=== PATIENT | male | born 1995 | race Caucasian/White ===

== ENCOUNTER → 2020-06-02 10:12 | Outpatient (CLI) | payer OTHER, SELFPAY ==
[2020-06-03 14:11] LABS: Covid-19 Nasal PCR Sendout Lex NOT DETECTED
== END ==
PROVIDERS: PCP Emergency Medicine; Visit Provider Nurse Practitioner Family
DX: Z03.818 Encounter for observation for suspected exposure to other biological agents ruled out (principal)
CPT/HCPCS: U0004

== ENCOUNTER 2022-02-01 16:04 | Emergency (ER) | payer BC, OTHER, SELFPAY ==
[2022-02-01 16:36] VITALS: BP 97/60; PULSE 88; RESP 16; TEMP 36.7; O2SAT 97; BMI 25.0
--- NOTE | 2022-02-01 17:05 | HMH.EDUTC ---
[facility] Disposition Clinical Impression: Exposure to COVID-19 virus, Viral syndrome Disposition: Home, Self-Care Condition on Discharge: Good Instructions: DI for COVID-19 (Suspected or Confirmed ), Preventing the Spread of Coronavirus Discharge Instructions Additional Instructions: Drink plenty of fluids. Take tylenol for pain or fever. Return if you begin to have difficulty breathing. Follow up with your regular doctor. GO TO THE ER FOR ANY WORSENING SYMPTOMS Quarantine until you know the results of your covid-19 test. If it is positive, the health department should call you and give you further instructions about your length of Quarantine and other things. Notify your school or workplace of your results and follow their instructions regarding return to work/school. Referrals: Charles Gordon MD [Primary Care Provider] - Time of Disposition: 17:10 Medical Decision Making - Medical Records Medical records reviewed: No: I reviewed the patient's medical records. - [place] Inquiry Pt receiving controlled substance: No Vital Signs: 02/01/22 16:36 02/01/22 17:12 Temperature 98.0 F 98.0 F Temperature Source Oral Pulse Rate 88 Pulse Rate [Left] 88 Respiratory Rate 16 16 Blood Pressure 97/60 L Blood Pressure [Right Arm] 97/60 L Blood Pressure Mean [Right Arm] 72 02 Sat by Pulse Oximetry 97 Oxygen Delivery Method Room Air [facility] HPI - General Stated complaint: cOVID tEST Time Seen by Provider: 02/01/22 17:05 Description of Symptoms (Recalled from Triage Doc. by RN): patient comes in for covid exposure. patient had chills and runny nose last night, but patient states now symptoms have gone away HEENT Symptoms (Recalled from RN notes): Yes Resp Symptoms (Recalled from RN notes): Yes Skin Symptoms (Recalled from RN notes): No MS Symptoms (Recalled from RN notes): No Functional Status (Recalled from RN notes): n/a - History of Present Illness Provider Complaint: He states that he was exposed to covid-19 about 4 days ago. He was starting to feel bad, but today he has no symptoms. - Related Data Allergies Allergy/AdvReac Type Severity Reaction Status Date / Time No Known Allergies Allergy Verified 02/01/22 16:40 - Worker's Comp Is this a Worker's Comp case?: No [facility] History - Hepatitis A Screen Attestation statement:: This patient has been screened for Hepatitis A risk factors. I have reviewed the patient's past medical history: Yes ROS Obtained: Yes All systems reviewed & no additional complaints - Constitutional Constitutional: Reports as per HPI - Eyes Eyes: Denies eye discharge - ENT Ears, Nose, Mouth, and Throat: Denies sore throat - Cardiovascular Cardiovascular: Denies chest pain - Respiratory Respiratory: Denies chest congestion, Denies cough, Denies dyspnea Physical Exam - General General appearance: alert, in no apparent distress - Head Head exam: atraumatic, normocephalic, normal inspection - Eye Eye exam: Present: normal appearance, PERRL, EOMI - ENT ENT exam: Present: normal exam, normal oropharynx, mucous membranes moist, TM's normal bilaterally, normal external ear exam - Neck Neck exam: Present: normal inspection, full ROM, trachea midline. Absent: meningismus, lymphadenopathy - Chest Chest inspection: Present: normal inspection, symmetric chest wall rise. Absent: tenderness - Respiratory Respiratory exam: Present: normal lung sounds bilaterally. Absent: respiratory distress - Cardiovascular Cardiovascular exam: Present: regular rate, normal rhythm. Absent: JVD - Abdominal Exam Abdominal exam: Present: soft, normal bowel sounds. Absent: distention, tenderness, guarding - Extremities Exam Extremities exam: Present: normal inspection, full ROM, normal capillary refill. Absent: calf tenderness - Back Exam Back exam: Present: normal inspection. Absent: tenderness - Neurological Exam Neurological exam: Prese
[2022-02-01 17:12] VITALS: BP 97/60; PULSE 88; RESP 16; TEMP 36.7; O2SAT 97
== END 2022-02-01 17:12 | disposition home or self-care (01) ==
PROVIDERS: Emergency Provider Nurse Practitioner Family; PCP Emergency Medicine
DX: Z20.822 Contact with and (suspected) exposure to COVID-19 (principal); B34.9 Viral infection, unspecified
CPT/HCPCS: 99212; C9803; G0463; U0003; U0005

== ENCOUNTER 2022-02-06 11:09 | Emergency (ER) | payer BC, OTHER, SELFPAY ==
[2022-02-06 11:21] VITALS: BP 118/85; PULSE 87; RESP 17; TEMP 36.8; O2SAT 97; BMI 25.0
--- NOTE | 2022-02-06 11:35 | HMH.EDUTC ---
[facility] [place] Disposition Clinical Impression: Viral syndrome, Exposure to COVID-19 virus Disposition: Home, Self-Care Condition on Discharge: Good Instructions: DI for Viral Syndrome, DI for COVID-19 (Suspected or Confirmed ), Preventing the Spread of Coronavirus Discharge Instructions Additional Instructions: Drink plenty of fluids. Take tylenol or ibuprofen for pain or fever. Take the medications as directed. Follow up with your regular doctor. GO TO THE ER FOR ANY WORSENING SYMPTOMS Quarantine until you know the results of your covid-19 test. Notify your school or workplace of your results and follow their instructions regarding return to work/school. Prescriptions: Brompheniramine/Pseudoephed/Dm [Bromfed Dm Cough Syrup] 5 ml PO Q6HP PRN #240 ml PRN Reason: Cough Transmission Status: Received by [id number] Ondansetron [Zofran 4mg ODT] 4 mg PO Q8HP PRN #12 tab PRN Reason: Nausea Transmission Status: Received by [facility] Referrals: Charles Gordon MD [Primary Care Provider] - Time of Disposition: 12:06 Medical Decision Making - Medical Records Medical records reviewed: No: I reviewed the patient's medical records. - [facility] Inquiry Pt receiving controlled substance: No Vital Signs: 02/06/22 11:21 02/06/22 12:06 Temperature 98.2 F 98.2 F Temperature Source Oral Oral Pulse Rate 84 Pulse Rate [Left Radial] 87 Respiratory Rate 17 17 Blood Pressure 112/70 Blood Pressure [Right Arm] 118/85 Blood Pressure Mean [Right Arm] 96 02 Sat by Pulse Oximetry 97 Oxygen Delivery Method Room Air Room Air [facility] [place] HPI - General Stated complaint: covid test Time Seen by Provider: 02/06/22 11:35 Mode of Arrival: Ambulatory Source of Information: Patient Limitations: No Limitations Description of Symptoms (Recalled from Triage Doc. by RN): pt to [facility] states he had a positive home covid test and is requesting a test today. HEENT Symptoms (Recalled from RN notes): No Resp Symptoms (Recalled from RN notes): No Skin Symptoms (Recalled from RN notes): No MS Symptoms (Recalled from RN notes): No Functional Status (Recalled from RN notes): na - History of Present Illness Provider Complaint: He states that for the past 2 days he has had body aches, chills, low grade fever and a dry cough. He has been exposed to covid-19 at his home and work. - Related Data Previous Rx's Medication Instructions Recorded Brompheniramine/Pseudoephed/Dm 5 ml PO Q6HP PRN #240 ml 02/06/22 [Bromfed Dm Cough Syrup] Ondansetron [Zofran 4mg ODT] 4 mg PO Q8HP PRN #12 tab 02/06/22 Allergies Allergy/AdvReac Type Severity Reaction Status Date / Time No Known Allergies Allergy Verified 02/01/22 16:40 - Worker's Comp Is this a Worker's Comp case?: No [facility] History - Hepatitis A Screen Attestation statement:: This patient has been screened for Hepatitis A risk factors. I have reviewed the patient's past medical history: Yes ROS Obtained: Yes All systems reviewed & no additional complaints - Constitutional Constitutional: Reports chills, Reports fever(s) - Eyes Eyes: Denies eye discharge - ENT Ears, Nose, Mouth, and Throat: Reports as per HPI - Cardiovascular Cardiovascular: Denies chest pain - Respiratory Respiratory: Denies chest congestion, Reports cough Physical Exam - General General appearance: alert, in no apparent distress - Head Head exam: atraumatic, normocephalic, normal inspection - Eye Eye exam: Present: normal appearance, PERRL, EOMI - ENT ENT exam: Present: normal exam, normal oropharynx, mucous membranes moist, TM's normal bilaterally, normal external ear exam - Neck Neck exam: Present: normal inspection, full ROM, trachea midline. Absent: meningismus, lymphadenopathy - Chest Chest inspection: Present: normal inspection, symmetric chest wall rise. Absent: tenderness - Respiratory Respiratory exam: Present: normal lung sounds
[2022-02-06 12:06] VITALS: BP 112/70; PULSE 84; RESP 17; TEMP 36.8; O2SAT 97
== END 2022-02-06 12:06 | disposition home or self-care (01) ==
PROVIDERS: Emergency Provider Nurse Practitioner Family; PCP Emergency Medicine
DX: U07.1 COVID-19 (principal)
CPT/HCPCS: 99212; C9803; G0463; U0003; U0005

== ENCOUNTER 2023-08-28 09:16 | Emergency (ER) | payer BC, OTHER, SELFPAY ==
[2023-08-28 09:16] VITALS: BP 137/87; PULSE 71; RESP 18; TEMP 36.6; O2SAT 99; BMI 25.8
--- NOTE | 2023-08-28 09:16 | ECG_ITS ---
APPROVED REPORT Exam: Resting ECG HR:67 bpm ECG Measurements Heart Rate 67 AXES MD 172 P 73 QRSd 96 QRS 83 QT 341 T 61 QTc 356 Conclusion SINUS RHYTHM EARLY REPOLARIZATION [ST ELEVATION WITH NORMALLY INFLECTED T-WAVE] ECG normal for age and sex UNCONFIRMED REPORT Electronically signed by : Oni Canela MD 08/30/2023 06:38:19
--- NOTE | 2023-08-28 09:31 | XR_ITS ---
FINAL REPORT TECHNIQUE: Single view chest CLINICAL HISTORY: soa FINDINGS: A single view of the chest was obtained. The heart and mediastinum are within normal limits. The lungs are clear. There is no pneumothorax. Osseous structures are unremarkable. IMPRESSION: No acute cardiopulmonary process. Reviewed, Interpreted and Dictated by Alec Lepe III, MD Transcribed by Zuleika Gray Authenticated and [facility]
--- NOTE | 2023-08-28 09:52 | ED_ITS ---
Discharge Plan Disposition Patient Disposition: Home, Self-Care Chief Complaint: Chest Pain Prescriptions Prescriptions: No Action [id number] 118 ML syrup 5 ml PO Q6HP PRN (Reason: Cough) Qty: 240 0RF ondansetron 4 MG tablet,disintegrating 4 mg PO Q8HP PRN (Reason: Nausea) Qty: 12 0RF Referrals Follow up/Referrals: Asad Batista DO [Primary Care Provider] - See instructions Activity Restrictions/Add. Instructions Additional Instructions/Restrictions: Call your family doctor to establish care for this visit to the emergency dep artment and schedule follow-up within 48 hours to ensure improvement. If you have any worsening of your condition or any other concerning signs or symptoms, return to the emergency department or your primary care doctor for further evaluation. Clinical Impressions Clinical Impression: Vasovagal near syncope Discharge ED Provider: Ronnell Jay General Chief Complaint: Chest Pain Stated Complaint: Chest Pain Time Seen by Provider: 08/28/23 09:17 Mode of Arrival: Ambulatory Source of Information: Patient Limitations: No Limitations Description of Symptoms (Recalled from ER Triage Doc. by RN): Patient states he started having substernal chest pain yesterday after work and just felt cold and clammy states he feels like he was having an anxiety attack. Patient reports symptoms similar to this before but were not accompanied by chest pain. Reports he woke up today and feels somewhat better but wanted to be checked out due to chest pain yesterday. History of Present Illness HPI narrative: Otherwise healthy 28-year-old male presenting with multiple complaints. Patient states that yesterday, 08/27, he was walking to his grandmother's house in the late afternoon when he felt a pressure sensation in his epigastrium, clammy, nauseated, felt as if he was going to pass out, then lay down on the ground. He states that his heart was beating very slowly after that. No syncope, not currently having symptoms. He thinks it was related to anxiety and panic, but given family history of cardiac disease, wanted to be sure. Related Data Previous Rx's Medication Instructions Recorded [id number]-[id number]-[id number] 5 ml PO Q6HP PRN Cough #240 mL 02/06/22 2 mg-30 mg-10 mg/5 mL oral syrup ondansetron 4 mg disintegrating 4 mg PO Q8HP PRN Nausea #12 tabs 02/06/22 tablet Allergies Allergy/AdvReac Type Severity Reaction Status Date / Time No Known Allergies Allergy Verified 02/01/22 16:40 [facility] Disclaimer: The information contained in this section may have been updated after the patient was seen, as this information can be updated by other users. Social History Smoking Status: Never smoker alcohol intake: never current occupational status: employed Travel in the last 8 weeks: None ROS Obtained: Yes All systems reviewed & no additional complaints except as documented Physical Exam General General appearance: alert Neck Neck exam: Present trachea midline Chest Chest inspection: Present normal inspection and symmetric chest wall rise Respiratory Respiratory exam: Present normal lung sounds bilaterally; Absent respiratory distress, wheezes, stridor, accessory muscle use or prolonged expiratory phase Cardiovascular Cardiovascular exam: Present regular rate and normal rhythm Extremities Exam Extremities exam: Absent edema Neurological Exam Neurological exam: Present alert, oriented X3 and CN II-XII intact Skin Skin exam: Present warm and dry; Absent cyanosis, diaphoresis or pallor HEART Score HEART Score HEART Score assessment performed?: Yes HEART Score: 0 Procedures Limited Ultrasound Indication:: Limited cardiac ultrasound Indication: Epigastric pain Identified cardiac views: -Cardiac parasternal long axis -Cardiac parasternal short axis -Cardiac apical four-chamber Findings: -Cardiac activity present -Gross wall motion normal -Pericardial effusion absent -Right heart strain absent -Grossly normal EPSS Impression: -Normal card sounds Images were saved to permanent archive The study was technically adequate CPT: 51779 This study was performed by me, and I personally interpreted all images/videos. Based on my clinical judgement, these images were adequate and did not necessitate further imaging. Critical Care Critical Care Time Critical Care Time: No Medical Decision Making Medical Records Medical records reviewed: Yes I reviewed the patient's medical records. [facility] Inquiry Pt receiving controlled substance: No Emerson was queried for this patient: No Vital Signs Vital Signs: 08/28/23 09:16 08/28/23 10:00 Temperature 97.8 F Temperature Source Oral Pulse Rate 71 Pulse Rate [Right] 71 Respiratory Rate 18 17 Blood Pressure 124/61 Blood Pressure [Right Arm] 137/87 Blood Pressure Mean 90 Blood Pressure Mean [Right Arm] 103 Blood Pressure Source [Right Arm] Automatic Cuff 02 Sat by Pulse Oximetry 99 97 Oxygen Delivery Method Room Air Lab Data Labs: Lab Results 08/28/23 09:19: WBC 5.6, RBC 4.78, Hgb 15.2, Hct 43.3, MCV 90.6, MCH 31.9 H, MCHC 35.2, RDW 12.2, Plt Count 162, MPV 8.0, Neut % (Auto) 53.2, Lymph % (Auto) 39.0, [place] % (Auto) 6.2, Eos % (Auto) 1.4, Baso % (Auto) 0.2, Neut # (Auto) 3.0, Lymph # (Auto) 2.2, [place] # (Auto) 0.4, Eos # (Auto) 0.1, Baso # (Auto) 0.0, Sodium 139, Potassium 3.7, Chloride 104, Carbon Dioxide 30, Anion Gap 8.7, BUN 18, Creatinine 1.00, Estimated Creat Clear 117, Estimated GFR 90, Est GFR ( Amer) 108, Glucose 79, Calcium 9.4, Total Bilirubin 3.7 H, AST 28, ALT 21, Alkaline Phosphatase 55, Troponin I < 0.01, Total Protein 7.6, Albumin 4.8, Globulin 2.8, Albumin/Globulin Ratio 1.7 08/28/23 09:19 08/28/23 09:19 Response Orders (Tests/Meds): ORDERS Category Date Time Status CXR --portable [XR chest portable] Stat Exams 08/28/23 09:31 Taken POCUS Point of Care (ER Only) Stat Exams 08/28/23 09:32 Completed CBC w/Auto Diff [Complete Blood Count Auto Diff] Stat Lab 08/28/23 09:19 Completed CMP [Comprehensive Metabolic Panel] Stat Lab 08/28/23 09:19 Completed Trop I [Troponin I] Stat Lab 08/28/23 09:19 Completed Troponin I Q3H Lab 08/28/23 12:45 Ordered Troponin I Q3H Lab 08/28/23 15:45 Ordered ECG initial Besson Routine Y 08/28/23 09:16 Completed MDM Narrative Medical Decision Narrative: Otherwise healthy 28-year-old male presenting with multiple complaints. Patient states that yesterday, 08/27, he was walking to his grandmother's house in the late afternoon. When he arrived, he stated he felt like he needed to have a bowel movement, he felt a pressure sensation in his epigastrium, clammy, nauseated, felt as if he was going to pass out, then lay down on the ground. He states that his heart was beating very slowly after that. No syncope, not currently having symptoms. He thinks it was related to anxiety and panic, but given family history of cardiac disease, wanted to be sure. History was obtained via conversation with patient and family. On arrival, patient hemodynamically stable, alert, oriented x4, appropriate, GCS 15, moving all extremities spontaneously, pupils equal and reactive to light. Full physical exam performed and significant for well-appearing male no acute distress. Cardiopulmonary exam within normal limits. Abdomen soft, nontender, nondistended. Lungs are clear to auscultation bilaterally. Differential includes vasovagal response, anxiety, panic, ACS, MT, pericarditis, among others. Workup independently interpreted and significant for nonactionable CBC or chem istry. Troponin negative. Chest x-ray without acute cardiopulmonary airspace disease. See radiology read for full review of final results. Independent interpretation of EKG shows sinus rhythm 67 beats a minute with no ST or T wave changes concerning for acute ischemia. Benign early repolarization pattern. VT, QRS, QT intervals within normal limits. Bedside cardiac ultrasound within normal limits On reevaluation, patient resting comfortably in bed. Given patient presentation, workup, history, this most likely represents vasovagal presyncope in the setting of abdominal cramping. Because patient at baseline without signs or symptoms of clinical decompensation, deemed appropriate for discharge. Results were relayed to patient who voiced understanding and were agreeable to outpatient management and follow up. At the time of discharge the patient was hemodynamically stable, tolerating PO, and mobilizing appropriately.
[2023-08-28 09:54] LABS: Basophils % 0.2 % (0.1-2.0); Eosinophils # 0.1 K/mm3 (0.0-0.4); Eosinophils % 1.4 % (0.1-12.0); Hematocrit 43.3 % (42.0-52.0); Hemoglobin 15.2 g/dL (14.1-18.0); Lymphocytes # 2.2 K/mm3 (0.7-4.5); Mean Corpuscular HGB Conc 35.2 g/dL (31.8-35.4); Mean Corpuscular Hemoglobin 31.9 pg (27.0-31.2); Mean Corpuscular Volume 90.6 fl (80-94); Monocytes # 0.4 K/mm3 (0.1-1.0); Monocytes % 6.2 % (1.7-9.3); Neutrophils % 53.2 % (37.0-80.0); Platelet Count 162 K/mm3 (142-424); Red Blood Count 4.78 M/mm3 (4.60-6.20); Red Cell Distribution Width 12.2 % (11.5-17.5); White Blood Count 5.6 K/mm3 (4.8-10.8)
[2023-08-28 09:55] LABS: Chloride 104 mmol/L (98-107); Potassium 3.7 mmoL/L (3.5-5.1); Sodium 139 mmol/L (136-145)
[2023-08-28 09:58] LABS: Alanine Aminotransferase 21 U/L (12-78); Albumin Level 4.8 g/dl (3.5-5.0); Albumin/Globulin Ratio 1.7 (1.1-1.8); Alkaline Phosphatase 55 U/L (38-126); Anion Gap 8.7 mEq/L (5-15); Aspartate Amino Transferase 28 U/L (17-59); Bilirubin,Total 3.7 mg/dl (0.2-1.3); Blood Urea Nitrogen 18 mg/dl (9-20); Carbon Dioxide 30 mmol/L (22.0-30.0); Creatinine Clearance Estimated 117 mL/min (50-200); Estimated Glomerular Filt Rate 90 ml/min (>60); GFR (African American) 108 ML/MIN (>60); Globulin 2.8 g/dL (1.3-3.2); Total Protein,Serum 7.6 g/dl (6.3-8.2)
[2023-08-28 09:59] LABS: Calcium 9.4 mg/dl (8.4-10.2); Glucose 79 mg/dl (74-100)
[2023-08-28 10:00] VITALS: BP 124/61; PULSE 71; RESP 17; O2SAT 97
[2023-08-28 10:26] LABS: Troponin I < 0.01 ng/ml (0.00-0.034)
[2023-08-28 10:30] VITALS: BP 123/78; PULSE 85; RESP 20; O2SAT 96
[2023-08-28 10:34] VITALS: BP 123/78; PULSE 72; RESP 18; TEMP 36.6; O2SAT 99
== END 2023-08-28 10:55 | disposition home or self-care (01) ==
PROVIDERS: Emergency Provider Emergency Medicine; PCP Internal Medicine
DX: R55 Syncope and collapse (principal); R07.9 Chest pain, unspecified; R11.0 Nausea
CPT/HCPCS: 71045; 80053; 84484; 85025; 93005; 99285

== ENCOUNTER 2024-04-14 20:38 | Emergency (ER) | payer BC, OTHER, SELFPAY ==
[2024-04-14 20:39] VITALS: BP 122/77; PULSE 83; RESP 18; TEMP 36.6; O2SAT 98; BMI 26.6
--- NOTE | 2024-04-14 20:48 | ED_ITS ---
Discharge Plan Disposition Patient Disposition: Home, Self-Care Condition: Good Prescriptions Prescriptions: No Action No Known Home Medications Referrals Follow up/Referrals: Allan Malin II, MD [Staff Physician] - See instructions Asad Batista DO [Primary Care Provider] - See instructions Activity Restrictions/Add. Instructions Additional Instructions/Restrictions: I have referred you to gastroenterology. Talk to them about hepatomegaly (large liver) and lab workup today. You likely need no other follow-up other than routine with your PCP as scheduled. Turn to ER for any worsening signs or symptoms as needed Clinical Impressions Clinical Impression: Unconjugated hyperbilirubinemia Instructions Patient Instructions: Gilbert Syndrome Print Language Print Language: [place] Discharge ED Provider: Ronnell Jay General Adult HPI <ASIA Dillon - Last Filed: 04/14/24 22:59> General Chief complaint: PAIN Stated complaint: left rib pain,yellow eyes Time Seen by Provider: 04/14/24 20:48 History of Present Illness HPI narrative: Patient presents for evaluation of left upper abdominal pain and yellowing of his eyes. Patient states that he has been having some left upper quadrant abdominal pain intermittently over the last couple of days. He has no associated shortness of breath chest pain dyspnea nausea vomiting or or diarrhea. Patient does also report a history of yellowing of the eyes that he states goes back to even when he was in high school intermittently. He has never had a workup for this. He denies IV drug use heavy alcohol or daily alcohol use. Related Data Home Medications ?Medication ?Instructions ?Recorded ?Confirmed No Known Home Medications 10/13/23 10/13/23 Allergies Allergy/AdvReac Type Severity Reaction Status Date / Time No Known Allergies Allergy Verified 10/13/23 08:04 PFSH <ASIA Dillon - Last Filed: 04/14/24 22:59> [facility] Disclaimer: The information contained in this section may have been updated after the patient was seen, as this information can be updated by other users. Surgical History History of elbow surgery Family History Other Cancer Coronary artery disease Social History (Reviewed 10/13/23 @ 08:04 by WINNIE Esparza Smoking Status: Never smoker alcohol intake: never current occupational status: employed Travel in the last 8 weeks: None <ASIA Dillon - Last Filed: 04/14/24 22:59> ROS Obtained: Yes Systems reviewed as appropriate & no additional complaints except as documented Physical Exam <ASIA Dillon - Last Filed: 04/14/24 22:59> General General appearance: alert and in no apparent distress Respiratory Respiratory exam: Present normal lung sounds bilaterally Cardiovascular Cardiovascular exam: Present regular rate Neurological Exam Neurological exam: Present alert and oriented X3 Medical Decision Making <ASIA Dillon - Last Filed: 04/14/24 22:59> Medical Records Medical records reviewed: Yes I reviewed the patient's medical records. Screening: Per USPSTF and CDC recommendations, given the prevalence of disease in our region, it is our hospital?s policy to screen for HIV and viral Hepatitis for all patients aged 18 and over and those with ongoing risk factors. [place] Inquiry Pt receiving controlled substance: No Vital Signs: 04/14/24 20:39 04/14/24 22:48 Temperature 98 F 97.9 F Temperature Source Oral Oral Pulse Rate 90 Pulse Rate [Left] 83 Respiratory Rate 18 18 Blood Pressure 134/77 Blood Pressure [Right Arm] 122/77 Blood Pressure Mean [Right Arm] 92 Blood Pressure Source Automatic Cuff Blood Pressure Source [Right Arm] Automatic Cuff Blood Pressure Position Supine Blood Pressure Position [Right Arm] Supine 02 Sat by Pulse Oximetry 98 Oxygen Delivery Method Room Air Room Air Lab Data Lab results reviewed: Yes I reviewed the patient's lab results. Lab Results 04/14/24 20:47: WBC 5.3, RBC 4.51 L, Hgb 14.8, Hct 43.3, MCV 95.9 H, MCH 32.8 H, MCHC 34.2, RDW 12.9, Plt Count 172, MPV 9.3, Neut % (Auto) 71.5, Lymph % (Auto) 22.1, Parmer % (Auto) 5.3, Eos % (Auto) 0.6, Baso % (Auto) 0.5, Neut # (Auto) 3.8, Lymph # (Auto) 1.2, Parmer # (Auto) 0.3, Eos # (Auto) 0.0, Baso # (Auto) 0.0, Sodium 138, Potassium 3.8, Chloride 105, Carbon Dioxide 26, Anion Gap 10.8, BUN 16, Creatinine 0.90, Estimated Creat Clear 134, Estimated GFR 101, Est GFR ( Amer) 122, Glucose 96, Calcium 9.9, Total Bilirubin 4.1 H, Direct Bilirubin 0.2, Indirect Bilirubin 0.0, AST 31, ALT 18, Alkaline Phosphatase 58, Lactate Dehydrogenase 141 L, Total Protein 8.1, Albumin 5.3 H, Globulin 2.8, A lbumin/Globulin Ratio 1.9 H, Lipase 100, Acetaminophen < 10 L, HIV 1&2 Antibody Rapid Nonreactive 04/14/24 21:35: Urine Color Yellow, Urine Appearance Clear, Urine pH 6.0, Ur Specific [place] 1.010, Urine Protein Negative, Urine Glucose (UA) Negative, Urine Ketones Negative, Urine Blood Negative, Urine Nitrate Negative, Urine Bilirubin Negative, Urine Urobilinogen 0.2, Ur Leukocyte Esterase Negative, Urine RBC Occasional, Urine WBC Occasional, Ur Squamous Epith Cells Occasional 04/14/24 20:47 04/14/24 20:47 Orders (Tests/Meds): ED MEDICATIONS Discontinued Medications Generic Name Dose Route Start Last Admin Trade Name Freq PRN Reason Stop Dose Admin Iopamidol 75 ml 04/14/24 21:37 04/14/24 21:38 Iopamidol-370 (76%);100ml Bottle IV 04/14/24 21:38 75 ml ONCE ONE Administration Sodium Chloride 10 ml 04/14/24 21:37 04/14/24 21:38 Sodium Chloride 0.9% 10ml Syr (Rad Only) IV 05/14/24 21:36 10 ml NEEDED PRN Administration Maintain IV Site ORDERS Category Date Time Status CT abdomen pelvis w con Stat Cat Scan 04/14/24 20:55 Completed Acetaminophen Stat Lab 04/14/24 20:47 Completed Bilirubin,Direct Stat Lab 04/14/24 20:47 Completed Bilirubin,Indirect Stat Lab 04/14/24 20:47 Completed CBC w/Auto Diff [Complete Blood Count Auto Diff] Stat Lab 04/14/24 20:47 Completed CMP [Comprehensive Metabolic Panel] Stat Lab 04/14/24 20:47 Completed HIV (1&2) Antibody Rapid Stat Lab 04/14/24 20:47 Completed Hep C Ab with Reflex to RNA Stat Lab 04/14/24 20:47 Stop Req Hepatitis Panel Routine Lab 04/14/24 21:12 Received LDH [Lactate Dehydrogenase] Stat Lab 04/14/24 20:47 Completed Lipase Stat Lab 04/14/24 20:47 Completed UA [Urinalysis and Microscopic] Stat Lab 04/14/24 21:35 Completed Medical Decision Narrative: In summary patient is a 28-year-old male who presents to the emergency department for evaluation of painless jaundice and left upper quadrant abdominal pain. Patient is hemodynamically stable upon arrival, afebrile. Physical exam is remarkable for icterus, no pruritus, slight tenderness to palpation in the left upper quadrant without rebound or guarding or rigidity. Bowel sounds are normal.. Differential diagnosis includes obstructive versus infective versus genetic jaundice, gastritis or pancreatitis etc. Initial workup will be conducted with hematologic labs CT scan abdomen pelvis.. Initial interventions were considered however patient has no significant pain or red flags to intervene with currently and so we will defer for now. Initial workup reviewed by me shows that his bilirubin today is 4.1 which is slightly up from August at which time it was 3.7, he has no elevation in transaminases, his LDH is 141 and the remainder of his hematologic labs are nonactionable. My informal interpretation of his CT scan abdomen pelvis shows no acute processes prior to radiology read. Given this patient is appropriate for discharge with follow-up with his PCP for the remainder of his send out lab results and referral to gastroenterology for following his Gilbert syndrome <Ronnell Jay MD - Last Filed: 04/15/24 16:09> Vital Signs: 04/14/24 20:39 04/14/24 22:48 Temperature 98 F 97.9 F Temperature Source Oral Oral Pulse Rate 90 Pulse Rate [Left] 83 Respiratory Rate 18 18 Blood Pressure 134/77 Blood Pressure [Right Arm] 122/77 Blood Pressure Mean [Right Arm] 92 Blood Pressure Source Automatic Cuff Blood Pressure Source [Right Arm] Automatic Cuff Blood Pressure Position Supine Blood Pressure Position [Right Arm] Supine 02 Sat by Pulse Oximetry 98 Oxygen Delivery Method Room Air Room Air Lab Data Lab Results 04/14/24 20:47: WBC 5.3, RBC 4.51 L, Hgb 14.8, Hct 43.3, MCV 95.9 H, MCH 32.8 H, MCHC 34.2, RDW 12.9, Plt Count 172, MPV 9.3, Neut % (Auto) 71.5, Lymph % (Auto) 22.1, Parmer % (Auto) 5.3, Eos % (Auto) 0.6, Baso % (Auto) 0.5, Neut # (Auto) 3.8, Lymph # (Auto) 1.2, Parmer # (Auto) 0.3, Eos # (Auto) 0.0, Baso # (Auto) 0.0, Sodium 138, Potassium 3.8, Chloride 105, Carbon Dioxide 26, Anion Gap 10.8, BUN 16, Creatinine 0.90, Estimated Creat Clear 134, Estimated GFR 101, Est GFR ( Amer) 122, Glucose 96, Calcium 9.9, Total Bilirubin 4.1 H, Direct Bilirubin 0.2, Indirect Bilirubin 0.0, AST 31, ALT 18, Alkaline Phosphatase 58, Lactate Dehydrogenase 141 L, Total Protein 8.1, Albumin 5.3 H, Globulin 2.8, A lbumin/Globulin Ratio 1.9 H, Lipase 100, Acetaminophen < 10 L, HIV 1&2 Antibody Rapid Nonreactive 04/14/24 21:35: Urine Color Yellow, Urine Appearance Clear, Urine pH 6.0, Ur Specific [place] 1.010, Urine Protein Negative, Urine Glucose (UA) Negative, Urine Ketones Negative, Urine Blood Negative, Urine Nitrate Negative, Urine Bilirubin Negative, Urine Urobilinogen 0.2, Ur Leukocyte Esterase Negative, Urine RBC Occasional, Urine WBC Occasional, Ur Squamous Epith Cells Occasional Orders (Tests/Meds): ED MEDICATIONS Discontinued Medications Generic Name Dose Route Start Last Admin Trade Name Freq PRN Reason Stop Dose Admin Iopamidol 75 ml 04/14/24 21:37 04/14/24 21:38 Iopamidol-370 (76%);100ml Bottle IV 04/14/24 21:38 75 ml ONCE ONE Administration Sodium Chloride 10 ml 04/14/24 21:37 04/14/24 21:38 Sodium Chloride 0.9% 10ml Syr (Rad Only) IV 05/14/24 21:36 10 ml NEEDED PRN Administration Maintain IV Site ORDERS Category Date Time Status CT abdomen pelvis w con Stat Cat Scan 04/14/24 20:55 Completed Acetaminophen Stat Lab 04/14/24 20:47 Completed Bilirubin,Direct Stat Lab 04/14/24 20:47 Completed Bilirubin,Indirect Stat Lab 04/14/24 20:47 Completed CBC w/Auto Diff [Complete Blood Count Auto Diff] Stat Lab 04/14/24 20:47 Completed CMP [Comprehensive Metabolic Panel] Stat Lab 04/14/24 20:47 Completed HIV (1&2) Antibody Rapid Stat Lab 04/14/24 20:47 Completed Hep C Ab with Reflex to RNA Stat Lab 04/14/24 20:47 Stop Req Hepatitis Panel Routine Lab 04/14/24 21:12 Received LDH [Lactate Dehydrogenase] Stat Lab 04/14/24 20:47 Completed Lipase Stat Lab 04/14/24 20:47 Completed UA [Urinalysis and Microscopic] Stat Lab 04/14/24 21:35 Completed Medical Decision Narrative: In summary patient is a 28-year-old male who presents to the emergency department for evaluation of painless jaundice and left upper quadrant abdominal pain. Patient is hemodynamically stable upon arrival, afebrile. Physical exam is remarkable for icterus, no pruritus, slight tenderness to palpation in the left upper quadrant without rebound or guarding or rigidity. Bowel sounds are normal.. Differential diagnosis includes obstructive versus infective versus genetic jaundice, gastritis or pancreatitis etc. Initial workup will be conducted with hematologic labs CT scan abdomen pelvis.. Initial interventions were considered however patient has no significant pain or red flags to intervene with currently and so we will defer for now. Initial workup reviewed by me shows that his bilirubin today is 4.1 which is slightly up from August at which time it was 3.7, he has no elevation in transaminases, his LDH is 141 and the remainder of his hematologic labs are nonactionable. My informal interpretation of his CT scan abdomen pelvis shows no acute processes prior to radiology read. Given this patient is appropriate for discharge with follow-up with his PCP for the remainder of his send out lab results and referral to gastroenterology for following his Gilbert syndrome I was consulted by the SAVANNAH, and we discussed the complexity of the problems being addressed. I approved the treatment and management plan for this patient's care in the Emergency Department, thus performing a substantive portion of the medical decision making. oRnnell Jay MD Critical Care <ASIA Dillon - Last Filed: 04/14/24 22:59> Critical Care Time Critical Care Time: No
--- NOTE | 2024-04-14 20:55 | CT_ITS ---
PROCEDURE INFORMATION: Exam: CT Abdomen And Pelvis With Contrast Exam date and time: 04/14/2024 9:35 PM Age: 28 years old Clinical indication: Other: Jaundice; Additional info: Painless jaundice TECHNIQUE: Imaging protocol: Computed tomography of the abdomen and pelvis with contrast. Radiation optimization: All CT scans at this facility use at least one of these dose optimization techniques: automated exposure control; mA and/or kV adjustment per patient size (includes targeted exams where dose is matched to clinical indication); or iterative reconstruction. Contrast material: ISOVUE; Contrast volume: 75 ml; Contrast route: IV; COMPARISON: CR XR CHEST PORTABLE 08/28/2023 9:39 AM FINDINGS: Lungs: 4 mm left lower lobe calcified granuloma. Liver: Mild hepatomegaly. No mass. Suggestion of minimal periportal edema. Gallbladder and biliary ducts: Normal. No calcified stones. No ductal dilation or wall thickening. Pancreas: Normal. No ductal dilation. Spleen: Borderline splenomegaly. Adrenal glands: Normal. No mass. Kidneys and ureters: Normal. No hydronephrosis. Stomach and bowel: Unremarkable. No obstruction. No mucosal thickening. Appendix: No evidence of appendicitis. Intraperitoneal space: Unremarkable. No free air. No significant fluid collection. Vasculature: Unremarkable. No abdominal aortic aneurysm. Lymph nodes: Unremarkable. No enlarged lymph nodes. Urinary bladder: Unremarkable as visualized. Reproductive: Prostatomegaly and enlargement of the seminal vesicles. Bones/joints: Unremarkable. No acute fracture. Soft tissues: Unremarkable. IMPRESSION: Mild hepatomegaly. Suggestion of minimal periportal edema, in which hepatitis is a consideration. No biliary ductal dilatation or wall thickening to suggest obstruction or cholangitis.
[2024-04-14 21:07] LABS: Basophils % 0.5 % (0.1-2.0); Eosinophils % 0.6 % (0.1-12.0); Hematocrit 43.3 % (42.0-52.0); Hemoglobin 14.8 g/dL (14.1-18.0); Lymphocytes # 1.2 K/mm3 (0.7-4.5); Lymphocytes % 22.1 % (10-50); Mean Corpuscular HGB Conc 34.2 g/dL (31.8-35.4); Mean Corpuscular Hemoglobin 32.8 pg (27.0-31.2); Mean Corpuscular Volume 95.9 fl (80-94); Mean Platelet Volume 9.3 fl (7.4-10.4); Monocytes # 0.3 K/mm3 (0.1-1.0); Monocytes % 5.3 % (1.7-9.3); Neutrophils # 3.8 K/mm3 (1.8-7.8); Neutrophils % 71.5 % (37.0-80.0); Platelet Count 172 K/mm3 (142-424); Red Blood Count 4.51 M/mm3 (4.60-6.20); Red Cell Distribution Width 12.9 % (11.5-17.5); White Blood Count 5.3 K/mm3 (4.8-10.8)
[2024-04-14 21:18] LABS: Albumin Level 5.3 g/dl (3.5-5.0)
[2024-04-14 21:19] LABS: Chloride 105 mmol/L (98-107); Potassium 3.8 mmoL/L (3.5-5.1); Sodium 138 mmol/L (136-145)
[2024-04-14 21:21] LABS: Alanine Aminotransferase 18 U/L (12-78); Alkaline Phosphatase 58 U/L (38-126); Anion Gap 10.8 mEq/L (5-15); Aspartate Amino Transferase 31 U/L (17-59); Bilirubin,Total 4.1 mg/dl (0.2-1.3); Blood Urea Nitrogen 16 mg/dl (9-20); Carbon Dioxide 26 mmol/L (22.0-30.0); Creatinine Clearance Estimated 134 mL/min (50-200); Estimated Glomerular Filt Rate 101 ml/min (>60); GFR (African American) 122 ML/MIN (>60)
[2024-04-14 21:22] LABS: Albumin/Globulin Ratio 1.9 (1.1-1.8); Bilirubin,Direct 0.2 mg/dl (0.0-0.4); Calcium 9.9 mg/dl (8.4-10.2); Globulin 2.8 g/dL (1.3-3.2); Glucose 96 mg/dl (74-100); Lipase 100 U/L (23-300); Total Protein,Serum 8.1 g/dl (6.3-8.2)
[2024-04-14] MEDS: IOPAMIDOL-370 (76%);100ML BOTTLE 75 ML IV (21:38)
[2024-04-14] MEDS: SODIUM CHLORIDE 0.9% 10ML SYR (RAD ONLY) 10 ML IV (21:38)
[2024-04-14 21:39] LABS: Microscopic, Urine URINE MICROSCOPIC (MICROSCOPIC)
[2024-04-14 21:41] LABS: Lactate Dehydrogenase 141 U/L (313-618)
[2024-04-14 21:49] LABS: Acetaminophen < 10 ug/ml (10-30)
[2024-04-14 21:51] LABS: Appearance,Urine CLEAR (Clear); Bilirubin,Urine Negative (Negative); Blood, Urine Negative (Negative); Color,Urine YELLOW (Yellow); Glucose,Urine (UA) Negative (Negative); Ketones,Urine Negative (Negative); Leukocyte Esterase,Urine Negative (Negative); Nitrate,Urine Negative (Negative); Protein,Urine Negative (Negative); Urobilinogen,Urine 0.2 EU/dl (0.2)
[2024-04-14 22:07] LABS: RBC,Urine Occasional #/hpf (0-3); Squamous Epithelial Cell,Urine Occasional #/hpf (0-5); WBC,Urine Occasional #/hpf (0-3)
[2024-04-14 22:38] LABS: HIV (1&2) Antibody Rapid NONREACTIVE (NONREACTIVE)
[2024-04-14 22:48] VITALS: BP 134/77; PULSE 90; RESP 18; TEMP 36.6; O2SAT 98
[2024-04-16 08:33] LABS: HCV Ab Non Reactive (Non Reactive)
[2024-04-16 08:33] LABS: HBsAg Screen Negative (Negative); HCV Ab Non Reactive (Non Reactive); Hep A Ab, IGM Negative (Negative); Hep B Core Ab, IgM Negative (Negative)
== END 2024-04-14 22:53 | disposition home or self-care (01) ==
PROVIDERS: Physician Assistant; Emergency Provider Emergency Medicine; PCP Internal Medicine
DX: E80.4 Gilbert syndrome; E80.6 Other disorders of bilirubin metabolism; R10.12 Left upper quadrant pain
CPT/HCPCS: 74177; 80053; 80074; 80329; 81001; 82248; 83615; 83690; 85025; 86803; 87389; 99284; G0480; Q9967

== ENCOUNTER → 2024-05-20 10:38 | Outpatient (REF) | payer BC, OTHER, SELFPAY ==
[2024-05-20 12:05] LABS: Alanine Aminotransferase 11 U/L (12-78); Albumin Level 4.9 g/dl (3.5-5.0); Albumin/Globulin Ratio 2.6 (1.1-1.8); Alkaline Phosphatase 38 U/L (38-126); Aspartate Amino Transferase 20 U/L (17-59); Bilirubin,Indirect 2.8 mg/dL (0.0-0.9); Bilirubin,Total 2.8 mg/dl (0.2-1.3); Bilirubin,Unconjugated 3.2 mg/dL (0.0-1.1); Blood Urea Nitrogen 16 mg/dl (9-20); Calcium 9.4 mg/dl (8.4-10.2); Carbon Dioxide 28 mmol/L (22.0-30.0); Chloride 103 mmol/L (98-107); Estimated Glomerular Filt Rate 101 ml/min (>60); GFR (African American) 122 ML/MIN (>60); Globulin 1.9 g/dL (1.3-3.2); Glucose 88 mg/dl (74-100); Sodium 140 mmol/L (136-145); Total Protein,Serum 6.8 g/dl (6.3-8.2)
[2024-05-26 08:54] LABS: Calprotectin, Fecal 9 ug/g (0-120); Pancreatic Elastase, Fecal >800 (>200)
== END ==
LOC: LAB 10:38
PROVIDERS: Visit Provider Nurse Practitioner Family
DX: E80.6 Other disorders of bilirubin metabolism (principal); R93.2 Abnormal findings on diagnostic imaging of liver and biliary tract; R15.2 Fecal urgency; R10.9 Unspecified abdominal pain; K52.9 Noninfective gastroenteritis and colitis, unspecified
CPT/HCPCS: 36415; 80053; 82247; 82248; 82656; 83993; 87506

== ENCOUNTER 2024-05-24 08:41 | Outpatient (CLI) | payer BC, OTHER, SELFPAY ==
--- NOTE | 2024-05-24 08:41 | US_ITS ---
FINAL REPORT CLINICAL HISTORY: ELEVATED BILIRUBIN -- ABN CT LIVER COMPARISON: CT abdomen pelvis 04/14/2024 FINDINGS: The liver appears normal. The portal vein is patent with normal directional flow, measures 11 mm. The hepatic veins are patent. The gallbladder is visualized and the wall appears normal. There are no gallstones. Common duct measures 3 mm, within normal limits. The right kidney is unremarkable. The pancreas is partially obscured. The IVC is patent. IMPRESSION: Unremarkable liver ultrasound. Authenticated and ERN
== END 2024-05-24 23:59 | disposition home or self-care (01) ==
LOC: RAD 08:41
PROVIDERS: PCP Internal Medicine; Visit Provider Nurse Practitioner Family
DX: E80.6 Other disorders of bilirubin metabolism (principal); R93.2 Abnormal findings on diagnostic imaging of liver and biliary tract
CPT/HCPCS: 76705

== ENCOUNTER → 2024-09-13 11:06 | Day surgery (SDC) | payer BC, OTHER, SELFPAY ==
[2024-09-13 12:20] VITALS: BP 138/77; PULSE 77; RESP 16; TEMP 36.8; O2SAT 98; BMI 25.3
--- NOTE | 2024-09-13 12:29 | EXP.ANES.CKL ---
[facility] Disclaimer: The information contained in this section may have been updated after the patient was seen, as this information can be updated by other users. Surgical History (Updated 09/13/24 @ 12:23 by Kathy Yun RN) H/O shoulder surgery History of elbow surgery Family History Other Cancer Coronary artery disease Social History (Updated 09/13/24 @ 12:23 by Kathy Yun RN) Smoking Status: Never smoker alcohol intake: never substance use type: denies use current occupational status: employed Travel in the last 8 weeks: None caffeine: Yes [facility] Anesthesia Checklist Patient Identification Patient Identification: Arm Band and Verbal (Name & ) Structural Data Admitted From: Home Planned Operative Procedure/s: colonoscopy Consent for Planned Operative Procedure(s) Verified: Yes Verified Documents: Surgical Consent NPO Status Verified Time NPO: 00:00 Additional verifications Patient : No Anesthesia Reactions: No Hx Blood Transfusions: No Blood Transfusion Reaction: No Cephalosporin Allergy: No Previous Colonoscopy: No Cardiovascular Assessment Heart Sounds: S1 & S2 Pulse Strength: Baseline Pulse Rhythm: Regular Peripheral Edema: No Airway Assessment Mallampati Score:: Class I C-Spine Mobility Assessed: Yes TMJ Mobility Assessed: Yes Dentition: Good Dentition Neurological Assessment Level of Consciousness: Awake, Alert and Appropriate Hx Seizures: No Numbness or tingling in extremities: No Anesthesia Plan Anesthesia Risk discussed: Yes Anesthesia Plan: Verified ASA Class: II Anesthesia Type: MAC
[2024-09-13] MEDS: LACTATED RINGERS 1000ML 1,000 ML 50 ML IV (12:31)
--- NOTE | 2024-09-13 13:33 | P.HP_ITS ---
History of Present Illness *Admission Date: 09/13/24 *Reason for visit:: Diarrhea, cramps, bowel urgency *History of present illness: Mr. Alvarez is a 29-year-old gentleman who is here for diagnostic colonoscopy secondary to cramps, diarrhea and urgency. He also gets some blood on the to ilet paper. The examination is deemed medically necessary for diagnostic colonoscopy. The patient has been seen, interviewed and examined prior to the procedure by both myself and the anesthesia provider. [facility] Disclaimer: The information contained in this section may have been updated after the patient was seen, as this information can be updated by other users. Surgical History (Updated 09/13/24 @ 12:23 by Kathy Yun RN) H/O shoulder surgery History of elbow surgery Family History Other Cancer Coronary artery disease Social History (Updated 09/13/24 @ 12:30 by Oni Simon CRNA) Smoking Status: Never smoker alcohol intake: never substance use type: denies use current occupational status: employed Travel in the last 8 weeks: None caffeine: Yes Have you lived/traveled outside [place] in past 30 days?: No Contact w/someone who lives/traveled outside US past 30 days?: No Exposure to someone with infectious disease in past 14 days?: No Do you have a fever (greater than 100.4 F or 38 C)?: No Have you tested positive for COVID-19: Yes Exposed to someone with COVID-19 in past 14 days?: No Do you have a sore throat?: No Do you have a cough?: No Do you have any weakness?: No Are you experiencing any nausea/vomitting?: No Do you have any diarrhea?: No Are you experiencing any unusual bleeding?: No Do you have any muscle aches/pain?: No Do you have any abdominal pain?: No Are you experiencing loss of taste or smell?: No Review of Systems Review of Systems Review of systems (narrative): Negative *Cardiovascular Comments: Negative *Gastrointestinal Comments: Negative *Genitourinary Comments: Negative *Musculoskeletal Comments: Negative *Neurologic Comments: Negative Meds Home Medications and Allergies Home Medications ?Medication ?Instructions ?Recorded ?Confirmed ?Type dicyclomine 10 mg capsule 10 mg PO .COMPLEX PRN abdominal 05/19/24 09/13/24 Rx pain/urgency #120 caps calcium polycarbophil 625 mg 1,250 mg PO BID 08/02/24 09/13/24 History tablet (FiberCon) peg 3350-electrolytes 236 240 ml PO Q10M colonscopy #4,000 mL 09/01/24 09/13/24 Rx gram-22.74 gram-6.74 gram-5.86 gram solution (Golytely) sodium,potassium,mag sulfates 17.5 See Rx Instructions PO .COMPLEX 09/01/24 09/13/24 Rx gram-3.13 gram-1.6 gram oral soln #354 mL (Suprep Bowel Prep Kit) New Prescriptions to Start Prescriptions: Allergies Allergy/AdvReac Type Severity Reaction Status Date / Time No Known Allergies Allergy Verified 09/13/24 12:18 Exam Data for Last 24 hours Vital signs and Labs for Last 24 Hours: Temp Pulse Resp BP Pulse Ox O2 Del Method 98.3 F 77 16 138/77 98 Room Air 09/13/24 12:20 09/13/24 12:20 09/13/24 12:20 09/13/24 12:20 09/13/24 12:20 09/13/24 12:20 I & O for Last 24 hours: Intake & Output 09/10/24 09/11/24 09/12/24 09/13/24 23:59 23:59 23:59 23:59 Weight 162 lb *Routine HEENT Exam Head: Present normocephalic Eye: Present EOMI and PERRL ENT: Present mucous membranes moist *Routine Neck Exam Neck: Present supple *Routine Respiratory Exam Respiratory: Present CTA bilaterally *Routine Cardiovascular Exam Cardiovascular: Present RRR *Routine Abdominal Exam Abdominal: Present soft and normoactive bowel sounds; Absent tenderness *Routine Rectal Exam Rectal:: deferred *Routine Genitalia Exam Genitalia:: deferred *Routine Extremities Exam Extremities: Absent cyanosis, clubbing or edema *Routine Skin Exam Skin: Present warm; Absent rash *Routine Neurological Exam Neurological: Present alert and oriented X3 Assessment and Plan *Assessment and plan (1) Chronic diarrhea: Status: Acute Category: Medical Code(s): K52.9 - Noninfective gastroenteritis and colitis, unspecified (2) Abdominal cramping: Status: Acute Category: Medical Code(s): R10.9 - Unspecified abdominal pain (3) Fecal urgency: Status: Acute Category: Medical Code(s): R15.2 - Fecal urgency (4) Blood in stool: Status: Acute Category: Medical Code(s): K92.1 - Melena Plan A/P: 1. Diarrhea with cramps, urgency and blood in stool is the preprocedural diagnosis. The patient will be anesthetized/sedated using MAC sedation. The patient has been seen and examined. Cardiac and lung assessment prior to the examination is stable. Proceed with planned diagnostic colonoscopy
[2024-09-13 13:36] VITALS: O2SAT 100
--- NOTE | 2024-09-13 13:45 | [facility].PROCNOTE ---
[facility] Procedure Note Date: 09/13/24 Time: 13:45 Procedure Note:: Colonoscopy Procedure Report: Colonoscopy with cold biopsies and monopolar ablation/coagulation of internal hemorrhoids Endoscopist: Allan Malin II, MD Referring physician: Asad Batista DO Date of Procedure: September 13, 2024 Equipment: Olympus 190 variable stiffness pediatric colonoscope Sedation: MAC sedation Indication: Mr. Alvarez is a 29-year-old gentleman who is here for diagnostic colonoscopy secondary to longstanding chronic diarrhea. He does get postprandial crampy discomfort with fecal urgency and diarrhea. He reports no gassiness or bloating. He has lost weight. He formerly was at 180 pounds and is now 162 pounds. He has had symptoms for years. He does get some relief with dicyclomine and uses FiberCon daily. He reports some growling and reports some epigastric abdominal discomfort. He reports no family history of colitis, Crohn's disease or colon cancer. This is his first colonoscopy. The patient does report seeing some blood on the toilet tissue frequently. He does have elevated bilirubin and Gilbert's syndrome. The patient's fecal calprotectin was normal at 9 mcg/g and he had a normal fecal elastase. Procedure: Prior to the procedure, a history and physical exam was performed, and patient's medications and allergies were reviewed. The risks, benefits and alternatives of the sedation and procedure were discussed with the patient. All questions were answered and informed consent was obtained. The patient was brought to the procedure room. Patient identification and proposed procedure were verified by the physician and the nurse. The patient was placed in a left lateral decubitus position and the scope was passed under direct vision. Throughout the procedure, the patient's blood pressure, pulse, and oxygen saturations were monitored continuously. The colonoscopy was accomplished without difficulty. The patient tolerated the procedure well. Findings: On digital rectal examination there was normal rectal tone. There were no external hemorrhoids. The colonoscope was introduced through the anal canal to the rectum and advanced to the cecum. The ileocecal valve and appendiceal orifice were identified. The scope was advanced a short distance into the ileum which appeared grossly normal. The scope was then withdrawn into the colon. The cecum, ascending, transverse, descending, sigmoid and rectum were grossly normal. Cold biopsies were taken randomly from the right colon to rule out microscopic colitis. There were no mucosal abnormalities identified. Upon retroflexion within the rectum there were grade 2 internal hemorrhoids. The 3 columns of hemorrhoids were ablated/coagulated using monopolar force coagulation to destruction. The preparation was excellent throughout with [place] Preparation Score of 9. The cecal time was 12 minutes. Impression: 1. Normal colonoscopy with intubation of the terminal ileum 2. Grade 2 internal hemorrhoids status post monopolar ablation/coagulation Plan: I would recommend increasing FiberCon to 2 tablets p.o. twice daily. I will follow-up the biopsies. If the biopsies are normal, I would consider Viberzi for his IBS diarrhea. Viberzi (Eluxadoline) is a very good therapy for the treatment of diarrhea from irritable bowel syndrome. Viberzi is primarily utilized in patients with severe IBS?D. This drug is effective for the diarrhea and is a very good option for those who have failed other treatments for the IBS with diarrhea. There is a small risk of pancreatitis associated with this medication (0.3%) especially in those who have heavy alcohol use or had previous gallbladder removal. It is recommended not to use Viberzi in the setting of active alcohol use or prior cholecystectomy. This medication is taken twice daily with food. He should see results within a few days and if this is effective, I will continue this as a maintenance treatment.
[2024-09-13 14:01] VITALS: BP 105/65; PULSE 69; RESP 15; TEMP 36.2; O2SAT 98
[2024-09-13 14:11] VITALS: BP 121/77; PULSE 67; RESP 17; O2SAT 100
[2024-09-13 14:21] VITALS: BP 134/83; PULSE 59; RESP 18; O2SAT 100
[2024-09-13 14:31] VITALS: BP 131/88; PULSE 67; RESP 18; O2SAT 100
== END | disposition home or self-care (01) ==
PROVIDERS: PCP Internal Medicine; Visit Provider Internal Medicine Gastroenterology
PROC: 0DJD8ZZ Inspection of Lower Intestinal Tract, Via Natural or Artificial Opening Endoscopic (ICD-10-PCS; CPT 45378; principal; 2024-09-13 13:00)
DX: K64.1 Second degree hemorrhoids (principal); K52.9 Noninfective gastroenteritis and colitis, unspecified; R10.9 Unspecified abdominal pain; R15.2 Fecal urgency; K92.1 Melena
CPT/HCPCS: 45380; 45388; J7120